=== PATIENT | female | born 1995 | race Native Hawaiian/Other Pacific Islander ===

== ENCOUNTER 2020-05-31 14:05 | Emergency (ER) | payer OTHER ==
[~2020-05-31] VITALS: Ht 165.1 cm; Wt 83.9 kg
[2020-05-31 14:14] VITALS: BP 104/60; TEMP 98.7
== END 2020-05-31 14:30 | disposition home or self-care (01) ==
LOC: ED 14:05
DX: N93.8 Other specified abnormal uterine and vaginal bleeding (principal)
CPT/HCPCS: 99281